=== PATIENT | female | born 2000 | race Caucasian/White ===

== ENCOUNTER 2024-11-17 16:11 | Inpatient (IN) | payer OTHER ==
[2024-11-17 17:52] VITALS: BMI 27.8
[2024-11-17] MEDS ORDERED: Ondansetron ODT 4 MG TAB PO PRN (18:33)
[2024-11-17] MEDS ORDERED: Bisacodyl 10 MG SUPP PR PRN (18:34)
[2024-11-17] MEDS ORDERED: Bisacodyl 5 MG TAB PO PRN (18:34)
[2024-11-17] MEDS ORDERED: Senokot S 8.6-50 MG TAB PO PRN (18:34)
[2024-11-17] MEDS ORDERED: INFUSION SET FOR INSULIN PUMP FS SCH (18:45)
[2024-11-17] MEDS: Senokot S 8.6-50 MG TAB PO SCH (20:23)
[2024-11-17] MEDS: Sodium Bicarbonate Tab 325 MG TAB PO SCH (20:24)
[2024-11-17] MEDS: Calcium Carbonate 500 MG ChewTAB PO SCH (20:25)
[2024-11-17] MEDS: Gabapentin 300 MG CAP PO SCH (20:26)
[2024-11-17] MEDS: Methocarbamol 500 MG TAB PO SCH (20:27)
[2024-11-17] MEDS: traMADol HCl 50 MG TAB PO SCH (20:27)
[2024-11-17] MEDS: Potassium Bicarbonate/Cit Ac 20 MEQ TAB PO SCH (20:29)
[2024-11-18] MEDS: Levothyroxine Sodium 25 MCG TAB PO SCH (05:39)
[2024-11-18] MEDS: Levothyroxine Sodium 112 MCG TAB PO SCH (05:39)
[2024-11-18] MEDS: Calcitriol 0.25 MCG CAP PO SCH (08:35)
[2024-11-18] MEDS: Enoxaparin 40 MG (0.4 mL) SYRINGE SC SCH (08:37)
[2024-11-18] MEDS: Polyethylene Glycol 3350 17 GM Packet PO SCH (08:38)
[2024-11-18] MEDS: Lidocaine 4% Patch TD SCH (12:52)
[2024-11-18 16:25] VITALS: BMI 27.8
[2024-11-18] MEDS: traMADol HCl 50 MG TAB PO SCH (17:49)
[2024-11-18] MEDS: Transdermal Patch Removal TOP SCH (20:24)
[2024-11-19] MEDS: Lidocaine 4% Patch TD SCH ×2 (09:19)
[2024-11-19] MEDS ORDERED: traMADol HCl 50 MG TAB PO PRN (12:38)
[2024-11-19] MEDS: traMADol HCl 50 MG TAB PO PRN (20:03)
[2024-11-20 05:47] LABS: Anion Gap 13 mmol/L (10-20); BUN (Urea Nitrogen) 37 mg/dL (7.0-18.7); Calc. Creatinine Clearance 42 mL/min (70-130); Calcium 8.6 mg/dL (7.8-10.44); Carbon Dioxide 18 mmol/L (22-29); Chloride 113 mmol/L (98-107); Estimated GFR 29; Glucose 94 mg/dL (70-105); Potassium 3.8 mmol/L (3.5-5.1); Sodium 140 mmol/L (136-145)
[2024-11-20] MEDS: Acetaminophen 325 MG TAB PO PRN (08:34)
[2024-11-22 08:30] VITALS: BP 98/68; TEMP 97.8
[2024-11-22 10:41] LABS: Phosphorus 2.5 mg/dL (2.3-4.7)
[2024-11-22 10:42] LABS: Anion Gap 15 mmol/L (10-20); BUN (Urea Nitrogen) 35 mg/dL (7.0-18.7); Calc. Creatinine Clearance 43 mL/min (70-130); Calcium 8.9 mg/dL (7.8-10.44); Carbon Dioxide 15 mmol/L (22-29); Chloride 113 mmol/L (98-107); Estimated GFR 32; Glucose 182 mg/dL (70-105); Potassium 4.3 mmol/L (3.5-5.1); Sodium 139 mmol/L (136-145)
[2024-11-24] MEDS ORDERED: Ergocalciferol 1.25 MG(50,000 UNITS) CAP PO SCH (09:00)
== END 2024-11-22 11:50 | disposition home or self-care (01) | DRG 945 ==
LOC: MADMS 17:24 → UNDOADMIN 17:24
PROVIDERS: ADMIT Family Medicine; ATTEND Family Medicine
PROC: F07Z9ZZ Gait Training/Functional Ambulation Treatment (ICD-10-PCS; principal; 2024-11-19)
DX: R53.81 Other malaise (principal); N25.81 Secondary hyperparathyroidism of renal origin; N39.0 Urinary tract infection, site not specified; E03.9 Hypothyroidism, unspecified; E10.22 Type 1 diabetes mellitus with diabetic chronic kidney disease; N18.9 Chronic kidney disease, unspecified; B96.20 Unspecified Escherichia coli [E. coli] as the cause of diseases classified elsewhere; E55.9 Vitamin D deficiency, unspecified; E87.6 Hypokalemia; E10.42 Type 1 diabetes mellitus with diabetic polyneuropathy; D63.1 Anemia in chronic kidney disease; R00.0 Tachycardia, unspecified; Z79.4 Long term (current) use of insulin; Z79.899 Other long term (current) drug therapy
CPT/HCPCS: 36415; 36416; 80048; 84100; J1650